=== PATIENT | female | born 1955 | race African-American/Black ===

== ENCOUNTER 2018-01-27 02:40 | Emergency (ER) | payer BC, OTHER ==
[~2018-01-27] VITALS: Ht 175.3 cm; Wt 90.7 kg
[2018-01-27] MEDS ORDERED: TDAP DIPH,PERTUSS,TET VAC/PF 0.5 ML DISP.SYRIN IM ONE ×2 (03:11→03:15)
--- NOTE | 2018-01-27 03:20 | NUR ---
Patient discharged to home in stable conditon. Written and verbal after care instructions given. Patient verbalizes understanding of instructions. Patient able to ambulate unassisted with a steady gait. Patient left with all personal belongings.
[2018-01-27 03:29] VITALS: BP 122/72
== END 2018-01-27 03:20 | disposition home or self-care (01) ==
LOC: ER 02:48
DX: S91.311A Laceration without foreign body, right foot, initial encounter (principal); Z88.5 Allergy status to narcotic agent; Z88.2 Allergy status to sulfonamides; W26.8XXA Contact with other sharp object(s), not elsewhere classified, initial encounter; Y93.89 Activity, other specified; Y92.89 Other specified places as the place of occurrence of the external cause; Y99.8 Other external cause status
CPT/HCPCS: 90715; A4663

== ENCOUNTER 2018-12-13 19:19 | Emergency (ER) | payer BC ==
[~2018-12-13] VITALS: Ht 172.7 cm; Wt 86.2 kg
[2018-12-13] MEDS ORDERED: LISINOPRIL 10 MG TABLET (19:29)
[2018-12-13] MEDS ORDERED: POTASSIUM CL ER 20 MEQ TABLET (19:29)
[2018-12-13] MEDS ORDERED: FLUTICASONE PROP 50 MCG SPRAY (19:29)
[2018-12-13] MEDS ORDERED: DILTIAZEM 180 MG (19:29)
[2018-12-13] MEDS ORDERED: RAMIPRIL 10 MG CAPSULE (19:29)
[2018-12-13] MEDS ORDERED: METHOCARBAMOL 750 MG TABLET (19:29)
[2018-12-13] MEDS ORDERED: LEVOTHYROXINE 112 MCG TABLET (19:29)
[2018-12-13] MEDS ORDERED: NAPROXEN 500 MG TABLET (19:29)
[2018-12-13] MEDS ORDERED: ROSUVASTATIN CALCIUM 5 MG TAB (19:29)
[2018-12-13] MEDS ORDERED: BUPROPION HCL XL 300 MG TABLET (19:29)
--- NOTE | 2018-12-13 19:40 | NUR ---
Dr. Marie at bedside for [facility]SE.
--- NOTE | 2018-12-13 20:38 | NUR ---
Ultrasound at bedside
--- NOTE | 2018-12-13 22:11 | NUR ---
Patient discharged to home in stable conditon. Written and verbal after care instructions given. Patient verbalizes understanding of instructions. Pt ambulated out of ER with steady gait, no acute signs of distress, all belongings taken, pt provided with CD of ultrasound results.
[2018-12-13 22:12] VITALS: BP 130/70
== END 2018-12-13 22:12 | disposition home or self-care (01) ==
LOC: ER 19:22
DX: S80.02XA Contusion of left knee, initial encounter (principal); I10 Essential (primary) hypertension; Z88.2 Allergy status to sulfonamides; Z88.5 Allergy status to narcotic agent; Z79.899 Other long term (current) drug therapy; X58.XXXA Exposure to other specified factors, initial encounter; Y93.89 Activity, other specified; Y92.89 Other specified places as the place of occurrence of the external cause; Y99.8 Other external cause status
CPT/HCPCS: A4663